=== PATIENT | male | born 1955 | race Caucasian/White ===

== ENCOUNTER 2025-06-19 11:43 | Outpatient (CLI) | payer BC, SELFPAY ==
--- NOTE | ~2025-06-19 | XR_ITS ---
EXAMINATION: XR shoulder LT min 2V, 06/19/2025 11:52 CDT HISTORY: L shoulder pain COMPARISON: No comparisons available. Findings: Postsurgical changes, no fracture identified. Moderate degenerative changes. Soft tissues unremarkable. Impression: No acute fracture or malalignment. Reviewed, dictated and finalized at location P. Impression: No acute fracture or malalignment.
== END 2025-06-19 11:44 | disposition home or self-care (01) ==
LOC: MICIMG 11:49
PROVIDERS: PCP Physician Assistant; Visit Provider Physician Assistant
DX: M25.512 Pain in left shoulder (principal)
CPT/HCPCS: 73030